=== PATIENT | male | born 1950 ===

== ENCOUNTER 2020-05-10 09:40 | Emergency (ER) | payer MEDICARE ==
--- NOTE | 2020-05-10 10:10 | EDM.PDOC ---
ED HPI GENERAL MEDICAL PROBLEM - General Chief Complaint: General Stated Complaint: SOB, wheezing, states he "needs an EKG" Time Seen by Provider: 05/10/20 10:00 Source of Information: Reports: Patient History Limitations: Reports: No Limitations - History of Present Illness INITIAL COMMENTS - FREE TEXT/NARRATIVE: He presents to the emergency department requesting an EKG. He states that his doctor (Shanti Maddox) started him on Levaquin 750 mg daily 4 days ago. Apparently he had an EKG the day before that and was noted to have some QT segment prolongation. That EKG is not available for review. Patient was called late yesterday afternoon instructing him to get an EKG, and to notify Dr. Maddox with the result. Apparently switching to a different medication once he is done with the Levaquin which also can cause ST segment prolongation. He denies any chest pain or tightness. No irregular heartbeats. He does have chronic shortness of breath secondary to COPD. He does feel his breathing is definitely improved from earlier in the week, since he has been on the Levaquin. No fever or chills. No dizziness or lightheadedness. No nausea or vomiting. - Related Data Allergies Allergy/AdvReac Type Severity Reaction Status Date / Time No Known Allergies Allergy Verified 05/10/20 09:49 Home Meds: Home Meds levoFLOXacin [Levaquin] 1 tab PO DAILY 05/10/20 [History] ED ROS GENERAL - Review of Systems Review Of Systems: See Below Constitutional: Denies: Fever, Chills HEENT: Denies: Ear Pain, Sinus Problem, Throat Pain Respiratory: Reports: Shortness of Breath (Chronic but stable). Denies: Cough, Sputum Cardiovascular: Denies: Chest Pain, Palpitations GI/Abdominal: Denies: Nausea, Vomiting : Reports: Dysuria, Frequency, Urgency ED EXAM, GENERAL - Physical Exam Exam: See Below Exam Limited By: No Limitations General Appearance: Alert, WD/WN, No Apparent Distress Throat/Mouth: Normal Oropharynx Head: Atraumatic, Normocephalic Neck: Supple. No: Non-Tender, Lymphadenopathy (L), Lymphadenopathy (R) Respiratory/Chest: No Respiratory Distress, No Accessory Muscle Use, Other (Slight and expiratory wheezing diffusely.) Cardiovascular: Regular Rate, Rhythm, No Murmur GI/Abdominal: Normal Bowel Sounds, Soft, Non-Tender Neurological: Alert, Oriented Psychiatric: Normal Affect, Normal Mood Skin Exam: Warm, Dry #1 Interpretation Rhythm: NSR [place]: Normal P-Wave: Present QRS: Normal ST-T: Normal QT: Normal EKG Interpretation Comments: Normal EKG. Course - Vital Signs Last Recorded V/S: Last Vital Signs Temp 36.7 C 05/10/20 09:49 Pulse 91 05/10/20 09:49 Resp 25 H 05/10/20 09:49 BP 149/84 H 05/10/20 09:49 Pulse Ox 98 05/10/20 09:49 - Orders/Labs/Meds Orders: Active Orders 24 hr Category Date Time Status EKG 12 Lead [EK] Stat Ther 05/10/20 10:11 Ordered Departure - Departure Time of Disposition: 10:36 Disposition: Home, Self-Care 01 Condition: Good Clinical Impression: Prolonged QT interval - Discharge Information *PRESCRIPTION DRUG MONITORING PROGRAM REVIEWED*: No *COPY OF PRESCRIPTION DRUG MONITORING REPORT IN PATIENT TAO: No Instructions: Electrocardiogram, [id number] Forms: ED Department Discharge Additional Instructions: Copy of the EKG is faxed to his primary physician. Patient should follow the primary physician's orders. Continue previous medications. Sepsis Event Note (ED) - Evaluation Sepsis Screening Result: Possible Sepsis Risk - Focused Exam Vital Signs: Vital Signs Temp Pulse Resp BP Pulse Ox 05/10/20 09:49 36.7 C 91 25 H 149/84 H 98 - My Orders Last 24 Hours: My Active Orders 05/10/20 10:11 EKG 12 Lead [EK] Stat - Assessment/Plan Last 24 Hours: My Active Orders 05/10/20 10:11 EKG 12 Lead [EK] Stat
== END 2020-05-10 10:45 | disposition home or self-care (01) ==
LOC: LL.ED 09:40
DX: I45.81 Long QT syndrome (principal)
CPT/HCPCS: 93005; 99284-25